=== PATIENT | female | born 1995 | race Caucasian/White ===

== ENCOUNTER 2021-07-13 22:15 | Emergency (ER) | payer SELFPAY ==
[~2021-07-13] VITALS: Ht 157.5 cm; Wt 52.0 kg
[2021-07-14 03:39] LABS: CLARITY URINE CLEAR (CLEAR); COLOR URINE YELLOW (YELLOW); KETONES URINE TRACE (NEGATIVE); LEUKOCYTE ESTERASE URINE NEGATIVE (NEGATIVE); NITRITE URINE NEGATIVE (NEGATIVE); OCCULT BLOOD URINE NEGATIVE (NEGATIVE); PH URINE 5.5 (4.5-8.0); PROTEIN URINE NEGATIVE (NEGATIVE); SPECIFIC GRAVITY URINE 1.008 (1.005-1.030); UROBILINOGEN URINE 0.2 E.U./dL (0.2-1.0)
[2021-07-14] MEDS ORDERED: ACET-2708 PO (04:10)
[2021-07-14] MEDS ORDERED: DOCU-150 PO (04:10)
[2021-07-14] MEDS ORDERED: POLY250017 MT (04:10)
[2021-07-14 04:21] VITALS: BP 129/89
== END 2021-07-14 04:23 | disposition home or self-care (01) ==
LOC: ER 22:15
DX: K59.00 Constipation, unspecified (principal)
CPT/HCPCS: 81003; 81025; 99283

== ENCOUNTER 2024-07-22 23:11 | Emergency (ER) | payer SELFPAY ==
[~2024-07-22] VITALS: Ht 157.5 cm; Wt 59.0 kg
[~2024-07-22 23:11] MED LIST: ACET-2708 PO; DOCU-422 PO; POLY250017 MT
[2024-07-22 23:31] VITALS: O2SAT 100
[2024-07-22 23:55] LABS: BASOPHILS % 0.6 % (0.0-2.0); EOSINOPHILS % 0.1 % (0.0-5.0); HEMATOCRIT. 29.3 % (36.0-48.0); HEMOGLOBIN. 8.7 g/dL (12.0-16.0); LYMPHOCYTES % 17.2 % (20.0-50.0); MEAN CORPUSCULAR HEMOGLOBIN 18.5 pg (28.0-32.0); MEAN CORPUSCULAR HGB CONC 29.6 g/dL (31.0-37.0); MEAN CORPUSCULAR VOLUME 62.3 fL (81.0-99.0); MEAN PLATELET VOLUME 8.6 fl (7.4-10.4); MONOCYTES % 6.2 % (2.0-8.0); NEUTROPHILS % 75.9 % (40.0-76.0); PLATELET 257 x1000/uL (130-400); RED CELL DISTRIBUTION WIDTH 19.5 % (11.6-14.6); WHITE BLOOD COUNT 8.7 x1000/uL (4.5-11.0)
[2024-07-23] MEDS: MORPHINE SULFATE 4 MG/ML INJ (FOR IV/IM USE) IV STA (00:07)
[2024-07-23 00:08] LABS: CHLORIDE 104 mEq/L (98-107); POTASSIUM 4.3 mEq/L (3.5-5.1); SODIUM 135 mEq/L (136-145)
[2024-07-23] MEDS: ONDANSETRON HCL 4MG/2ML INJ IV STA (00:08)
[2024-07-23 00:09] LABS: CALCIUM 9.7 mg/dL (8.7-10.4); CARBON DIOXIDE 22 mEq/L (21-32)
[2024-07-23 00:14] LABS: CREATININE 0.7 mg/dL (0.6-1.0); GLUCOSE 102 mg/dL (70-105); UREA NITROGEN BLOOD 7 mg/dL (9-23)
[2024-07-23 00:16] LABS: ALANINE AMINOTRANSFERASE 22 IU/L (10-49); ASPARTATE AMINOTRANSFERASE 26 IU/L (<34); BILIRUBIN DIRECT 0.2 mg/dL (<=3.0); BILIRUBIN TOTAL 0.7 mg/dL (0.1-1.0)
[2024-07-23 00:18] LABS: ADD RBC MORPHOLOGY YES; DIFFERENTIAL COMMENT 1
[2024-07-23 00:23] LABS: HCG SCREEN NEGATIVE
[2024-07-23] MEDS ORDERED: DOCU-138 MT (00:42)
[2024-07-23] MEDS ORDERED: FERR324T4 MT (00:42)
[2024-07-23] MEDS ORDERED: POLY17PO3 MT (00:42)
[2024-07-23 00:56] LABS: CLARITY URINE CLEAR (CLEAR); COLOR URINE YELLOW (YELLOW); GLUCOSE URINE NEGATIVE (NEGATIVE); KETONES URINE 2+ (NEGATIVE); LEUKOCYTE ESTERASE URINE 3+ (NEGATIVE); NITRITE URINE POSITIVE (NEGATIVE); OCCULT BLOOD URINE NEGATIVE (NEGATIVE); PH URINE 7.5 (4.5-8.0); PROTEIN URINE NEGATIVE (NEGATIVE); SPECIFIC GRAVITY URINE 1.011 (1.005-1.030); UROBILINOGEN URINE 0.2 E.U./dL (0.2-1.0)
[2024-07-23] MEDS ORDERED: CEPH500C2 MT (01:12)
[2024-07-23 01:21] LABS: SQUAMOUS EPITHELIAL CELL URINE FEW /lpf (RARE/1+)
[2024-07-23 01:22] LABS: RBC URINE 0-2 /hpf (0-2)
[2024-07-23 01:23] LABS: BACTERIA URINE 2+
[2024-07-23] MEDS: CEPHALEXIN 250MG CAPSULE PO ONE (01:26)
[2024-07-23] MEDS: DOCUSATE SODIUM 100MG CAPSULE PO ONE (01:26)
[2024-07-23] MEDS: POLYETHYLENE GLYCOL 3350 (17GM) 1 DOSE PACK PO ONE (01:27)
[2024-07-23 02:21] VITALS: BP 121/76; PULSE 84; RESP 12; TEMP 36.7; O2SAT 100
[2024-07-23 03:20] LABS: PLATELET ESTIMATE NORMAL
[2024-07-23 03:21] LABS: HYPOCHROMASIA 2+; MICROCYTOSIS 2+
== END 2024-07-23 02:22 | disposition home or self-care (01) ==
LOC: ER 23:11
DX: D50.9 Iron deficiency anemia, unspecified (principal); R33.9 Retention of urine, unspecified; N39.0 Urinary tract infection, site not specified; Z79.899 Other long term (current) drug therapy
CPT/HCPCS: 80076; 80048; 84703; 83690; 85025; 36415; 74176; 51701; 99285; 81003; 96374; 96375; J2405; J2270; Z7610